=== PATIENT | female | born 1980 | race Two or more races ===

== ENCOUNTER → 2016-07-02 | Outpatient (CLI) | payer BC ==
--- NOTE | 2016-07-02 10:21 | DX ---
Acute Abdominal Series Clinical History: 35-year-old female with constipation for several months, complaining of right and l eft lower quadrant pain the last 2 weeks. Evaluate stool burden. Comparison Study: None. Findings: PA Upright View of the Chest: The cardiac and mediastinal silhouette is normal. The lungs are well-ex panded. There is no focal infiltrate, pleural effusion, peripheral interstitial edema, or pneumothora x. The trachea is midline. There is no free subdiaphragmatic air. Abdomen (AP Supine and Upright Views): Fecal material is noted throughout the colon. There is a redun dant nonspecific loop of air-filled bowel in the left paracentral abdomen. There is no free air or ap parent organomegaly. Trace dextrothoracolumbar junction curvature is seen. There are no abnormal calc ific radiodensities. Impression: 1. No active disease in the chest. 2. Moderate constipation with otherwise nonspecific bowel gas pattern. If there is progression of the patient's symptoms, contrast-enhanced CT imaging of the abdomen and pe lvis could be considered.
== END ==
LOC: CIMAGING 09:33
PROVIDERS: ATTEND Physician Assistant
DX: K59.00 Constipation, unspecified (principal)
CPT/HCPCS: 74022-PO